=== PATIENT | female | born 1990 | race Hispanic/Latino ===

== ENCOUNTER 2016-09-21 14:09 | Emergency (ER) | payer SELFPAY ==
[~2016-09-21] VITALS: Ht 157.5 cm; Wt 56.7 kg
[2016-09-21] MEDS ORDERED: PREDNISONE10 MG PO (14:38)
[2016-09-21] MEDS ORDERED: NAPROXEN250 MG PO (14:39)
[2016-09-21] MEDS ORDERED: PROTONIX40 MG PO (15:33)
[2016-09-21] MEDS ORDERED: ZOFRAN ODT4 MG PO (15:33)
== END 2016-09-21 15:42 | disposition home or self-care (01) ==
LOC: ED 14:09
DX: R10.9 Unspecified abdominal pain (principal); R10.817 Generalized abdominal tenderness; R11.2 Nausea with vomiting, unspecified; Z88.0 Allergy status to penicillin; Z79.52 Long term (current) use of systemic steroids; Z79.899 Other long term (current) drug therapy
CPT/HCPCS: 80053; 81001; 82150; 83690; 84703; 85025; 96361; 96374; 96375; 99283; J1170; J2405; J7030